=== PATIENT | male | born 1990 | race American Indian/Alaskan Native ===

== ENCOUNTER 2022-02-14 00:45 | Emergency (ER) | payer OTHER ==
--- NOTE | 2022-02-14 03:16 | XRay Report ---
CHEST 1 VIEW INDICATION / CLINICAL INFORMATION: Dyspnea. COMPARISON: None available. FINDINGS: SUPPORT DEVICES: None. HEART / MEDIASTINUM: Borderline to mild cardiomegaly. LUNGS / PLEURA: Prominent pulmonary vasculature with mild cephalization. The lungs bilaterally demons trate reticular interstitial opacities as well as more focal stranding within the left cardiophrenic angle thought reflect left lower lobe subsegmental atelectasis. BONES: No significant osseous abnormality. ADDITIONAL FINDINGS: No significant additional findings. IMPRESSION: 1. Mild CHF with pulmonary vascular congestion and interstitial pulmonary edema suggested. Signer Name: Sudhakar Abad II, MD Signed: 02/14/2022 3:12 AM Workstation Name: [id number]
[2022-02-14 04:02] LABS: Eosinophils # (Auto) 0.5 K/mm3 (0.0-0.4); Eosinophils % (Auto) 9.9 % (0.0-4.3); Hematocrit 30.9 % (35.5-45.6); Lymphocytes # (Auto) 1.5 K/mm3 (1.2-5.4); Lymphocytes % (Auto) 30.7 % (13.4-35.0); Mean Corpuscular HGB Conc 32 % (32-34); Mean Corpuscular Volume 97 fl (84-94); Monocytes # (Auto) 0.3 K/mm3 (0.0-0.8); Monocytes % (Auto) 5.9 % (0.0-7.3); Platelet Count 155 K/mm3 (140-440); Red Blood Count 3.18 M/mm3 (3.65-5.03); Red Cell Distribution Width 14.4 % (13.2-15.2)
[2022-02-14 04:14] LABS: Albumin 4.3 g/dL (3.9-5); Calcium 9.3 mg/dL (8.4-10.2)
[2022-02-14 04:26] LABS: Chol/HDL Ratio 2.91 %
--- NOTE | 2022-02-14 05:47 | Emergency Department Report ---
ED General Adult HPI - General Chief complaint: High BP Stated complaint: DIALYSIS PUI?: No Time Seen by Provider: 02/14/22 02:46 Source: police Mode of arrival: Ambulatory Limitations: No Limitations - History of Present Illness Initial comments: PT IS HERE [place], HE HAS esrd ON DIALYSIS mwf , HE WAS ARRESTED ON HASNT HAND HIS FRIDAY DIALYSIS , HE DENOES ANY SOB HTN OR WEAKNESS Severity scale (0 -10): 0 ED Review of Systems ROS: Stated complaint: DIALYSIS Other details as noted in HPI Constitutional: denies: chills, fever Eyes: denies: eye pain, eye discharge, vision change ENT: denies: ear pain, throat pain Respiratory: denies: cough, shortness of breath, wheezing Cardiovascular: denies: chest pain, palpitations Endocrine: no symptoms reported Gastrointestinal: denies: abdominal pain, nausea, diarrhea Genitourinary: denies: urgency, dysuria Musculoskeletal: denies: back pain, joint swelling, arthralgia Skin: denies: rash, lesions Neurological: denies: headache, weakness, paresthesias Psychiatric: denies: anxiety, depression Hematological/Lymphatic: denies: easy bleeding, easy bruising ED Past Medical Hx - Past Medical History Previous Medical History?: No Hx Hypertension: Yes Hx Renal Disease: Yes - Social History Smoking Status: Unknown if ever smoked Substance Use Type: None ED Physical Exam - General Limitations: No Limitations General appearance: alert, in no apparent distress - Head Head exam: Present: atraumatic, normocephalic - Eye Eye exam: Present: normal appearance - ENT ENT exam: Present: mucous membranes moist - Neck Neck exam: Present: normal inspection - Respiratory Respiratory exam: Present: normal lung sounds bilaterally. Absent: respiratory distress - Cardiovascular Cardiovascular Exam: Present: regular rate, normal rhythm. Absent: systolic murmur, diastolic murmur, rubs, gallop - GI/Abdominal GI/Abdominal exam: Present: soft, normal bowel sounds - Rectal Rectal exam: Present: deferred - Extremities Exam Extremities exam: Present: normal inspection - Back Exam Back exam: Present: normal inspection - Neurological Exam Neurological exam: Present: alert, oriented X3 - Psychiatric Psychiatric exam: Present: normal affect, normal mood - Skin Skin exam: Present: warm, dry, intact, normal color. Absent: rash ED Course Vital Signs 02/14/22 02:44 Temperature 98.3 F Pulse Rate 94 H Respiratory 20 Rate Blood Pressure 178/104 Blood Pressure 178/104 [Left] O2 Sat by Pulse 100 Oximetry ED Medical Decision Making - Lab Data Result diagrams: 02/14/22 03:38 02/14/22 03:38 - Radiology Data Radiology results: report reviewed, image reviewed - Medical Decision Making WORK UP SHWOED crf NO SIGNS OF OVERLOAD NO sob, O2 SAT 97 ON ra NO DISTRESS, WILL DISHCARGE FOR POLICE CUSTODY TO BE DIALISED IN [facility] TOMORROW Critical care attestation.: If time is entered above; I have spent that time in minutes in the direct care of this critically ill patient, excluding procedure time. ED Disposition Clinical Impression: ESRD on dialysis Disposition: HOME / SELF CARE / HOMELESS Is pt being admited?: No Does the pt Need Aspirin: No Condition: Stable Instructions: Dialysis
[2022-02-14 05:54] VITALS: BP 169/92
== END 2022-02-14 07:18 | disposition home or self-care (01) ==
LOC: ED 00:45
DX: I12.0 Hypertensive chronic kidney disease with stage 5 chronic kidney disease or end stage renal disease (principal); N18.6 End stage renal disease; Z99.2 Dependence on renal dialysis
CPT/HCPCS: 36415; 71045; 80053; 80061; 82550; 82553; 84484; 85025; 99284